=== PATIENT | female | born 1980 | race African-American/Black ===

== ENCOUNTER 2017-03-23 20:23 | Emergency (ER) | payer OTHER ==
[~2017-03-23] VITALS: Ht 165.1 cm; Wt 95.7 kg
[~2017-03-23 20:23] MED LIST: BACTRIM,SEPT1 TABLE1; CELEXA20 MG PO; IMURAN100 MG PO; IMURAN50 MG PO; LODINE400 MG PO; LOSARTAN POTASS50 MG PO; METHOTREXATE2.5 MG PO; METOPROLOL TART25 MG; METOPROLOL TART25 MG PO; Macrobid PO; PLAQUENIL200 MG PO; PREDNISONE20 MG PO; PREDNISONE5 MG PO; VESICARE10 MG PO; ZOFRAN ODT4 MG PO; ZOFRAN4 MG PO
[2017-03-23 20:58] LABS: EOSINOPHIL (%) 2.5 % (0-5); EOSINOPHIL COUNT 0.2 K/uL (0-0.3); HEMATOCRIT 34.6 % (36.0-46.0); IMMATURE GRANULOCYTE (%) 0.4 % (0.0-0.7); INSTRUMENT ABS NEUTROPHIL CT 4.8 K/uL; LYMPHOCYTE COUNT 2.5 K/uL (1.0-2.8); MCH 30.5 PG (29.0-34.0); MCHC 34.4 G/DL (30.0-36.0); MCV 88.7 FL (83-99); MONOCYTE COUNT 0.8 K/uL (0-0.8); NEUTROPHIL (%) 57.5 % (45-76); NEUTROPHIL COUNT 4.8 K/uL (1.8-6.4); PLATELET COUNT 272 K/uL (156-360); RBC DIS.WIDTH-CV 13.2 % (11.8-14.6); WHITE BLOOD COUNT 8.4 K/uL (4.1-10.2)
[2017-03-23 21:09] LABS: CHLORIDE 104 mEq/L (99-109); SODIUM 137 mEq/L (136-147)
[2017-03-23 21:11] LABS: GLUCOSE 79 mg/dL (70-99)
[2017-03-23 21:12] LABS: ANION GAP 6 MEQ/L (2-14)
[2017-03-23 21:13] LABS: TOTAL BILIRUBIN 0.7 mg/dL (0.0-1.0)
[2017-03-23 21:15] LABS: ALKALINE PHOSPHATASE 40 IU/L (3-129); GFR ESTIMATE (CALCULATED) > 59 mL/min/
[2017-03-23 21:16] LABS: UREA NITROGEN (BUN) 10 mg/dL (9-23)
[2017-03-23 21:18] LABS: CREATINE KINASE 235 IU/L (1-294)
[2017-03-23 21:26] LABS: QUANTITATIVE HCG < 4.0 MIU/ML
[2017-03-23] MEDS ORDERED: ATARAX,VISTARIL25 MG PO (21:42)
[2017-03-23] MEDS ORDERED: PREDNISONE20 MG PO (21:42)
[2017-03-23] MEDS ORDERED: VICODIN 5-3001 EACH PO (21:42)
[2017-03-23 21:54] VITALS: BP 137/79
== END 2017-03-23 21:55 | disposition home or self-care (01) ==
LOC: EME 20:23
PROVIDERS: Physician Assistant
DX: M79.1 Myalgia (principal); M33.90 Dermatopolymyositis, unspecified, organ involvement unspecified
CPT/HCPCS: 80053; 81003; 82550; 84702; 85025; 99281; 99284; J7512; Q0177

== ENCOUNTER 2017-06-08 07:46 | Emergency (ER) | payer OTHER ==
[~2017-06-08] VITALS: Ht 175.3 cm; Wt 98.7 kg
[~2017-06-08 07:46] MED LIST changes: +ATARAX,VISTARIL25 MG PO; +VICODIN 5-3001 EACH PO
[2017-06-08 08:15] LABS: EOSINOPHIL (%) 0.9 % (0-5); EOSINOPHIL COUNT 0.1 K/uL (0-0.3); HEMATOCRIT 32.8 % (36.0-46.0); IMMATURE GRANULOCYTE (%) 0.3 % (0.0-0.7); INSTRUMENT ABS NEUTROPHIL CT 4.3 K/uL; LYMPHOCYTE COUNT 1.6 K/uL (1.0-2.8); MCH 30.9 PG (29.0-34.0); MCHC 34.5 G/DL (30.0-36.0); MCV 89.6 FL (83-99); MEAN PLAT.VOLUME 10.4 uM^3 (9.5-12.4); MONOCYTE (%) 9.4 % (3-12); MONOCYTE COUNT 0.6 K/uL (0-0.8); NEUTROPHIL (%) 64.8 % (45-76); NEUTROPHIL COUNT 4.3 K/uL (1.8-6.4); PLATELET COUNT 226 K/uL (156-360); RBC DIS.WIDTH-CV 14.3 % (11.8-14.6); RBC DIS.WIDTH-SD 46.5 % (39-53); RED BLOOD COUNT 3.66 M/uL (3.80-5.20); WHITE BLOOD COUNT 6.7 K/uL (4.1-10.2)
[2017-06-08 08:23] LABS: CHLORIDE 107 mEq/L (99-109); POTASSIUM 3.6 mEq/L (3.7-5.4); SODIUM 139 mEq/L (136-147)
[2017-06-08 08:25] LABS: GLUCOSE 90 mg/dL (70-99)
[2017-06-08 08:26] LABS: ANION GAP 6 MEQ/L (2-14)
[2017-06-08 08:27] LABS: TOTAL BILIRUBIN 0.6 mg/dL (0.0-1.0)
[2017-06-08 08:29] LABS: ALKALINE PHOSPHATASE 37 IU/L (3-129); GFR ESTIMATE (CALCULATED) > 59 mL/min/
[2017-06-08 08:30] LABS: UREA NITROGEN (BUN) 6 mg/dL (9-23)
[2017-06-08 08:32] LABS: LIPASE 10 U/L (1.0-51.0)
[2017-06-08 08:35] LABS: ADD MIUA? YES; BILIRUBIN NEGATIVE; BLOOD SMALL; COLOR YELLOW ((YELLOW)); GLUCOSE (STRIP) NEGATIVE; KETONES NEGATIVE; LEUKOCYTES NEGATIVE; NITRITE NEGATIVE; PROTEIN (STRIP) 100; SPECIFIC GRAVITY 1.013 (1.000-1.030); UROBILINOGEN 0.2 MG/DL (0.2-1.0)
[2017-06-08 08:38] LABS: QUANTITATIVE HCG < 4.0 MIU/ML
[2017-06-08 08:44] LABS: BACTERIA RARE /HPF; EPITHELIAL CELLS 1+ /HPF; GRANULAR CASTS 0-5 /LPF; MUCUS TRACE /LPF; UCUL ADDED? NO; WHITE BLOOD CELLS 0-5 /HPF (0-5)
[2017-06-08] MEDS ORDERED: ZOFRAN ODT4 MG PO (09:00)
[2017-06-08 09:10] VITALS: BP 114/82
== END 2017-06-08 09:10 | disposition home or self-care (01) ==
LOC: EME 07:46
PROVIDERS: Physician Assistant
DX: K52.9 Noninfective gastroenteritis and colitis, unspecified (principal); J84.9 Interstitial pulmonary disease, unspecified; M33.13 Other dermatomyositis without myopathy
CPT/HCPCS: 80053; 81003; 83690; 84702; 85025; 99281; 99285; J7120; Q0177

== ENCOUNTER 2017-07-16 19:45 | Emergency (ER) | payer OTHER ==
[~2017-07-16] VITALS: Ht 165.1 cm; Wt 100.2 kg
[2017-07-16 20:14] LABS: ADD MIUA? YES; BILIRUBIN NEGATIVE; BLOOD LARGE; COLOR YELLOW ((YELLOW)); GLUCOSE (STRIP) NEGATIVE; KETONES NEGATIVE; LEUKOCYTES TRACE; NITRITE NEGATIVE; PROTEIN (STRIP) 100; SPECIFIC GRAVITY 1.008 (1.000-1.030); UROBILINOGEN 0.2 MG/DL (0.2-1.0)
[2017-07-16 20:22] LABS: HEMATOCRIT 33.6 % (36.0-46.0); MCH 31.1 PG (29.0-34.0); MCHC 35.1 G/DL (30.0-36.0); MCV 88.4 FL (83-99); MEAN PLAT.VOLUME 10.4 uM^3 (9.5-12.4); PLATELET COUNT 261 K/uL (156-360); RBC DIS.WIDTH-CV 13.3 % (11.8-14.6); RBC DIS.WIDTH-SD 43.5 % (39-53); WHITE BLOOD COUNT 9.7 K/uL (4.1-10.2)
[2017-07-16 20:32] LABS: CASTS NONE SEEN /LPF; EPITHELIAL CELLS 1+ /HPF; MUCUS TRACE /LPF
[2017-07-16 20:33] LABS: BACTERIA NONE SEEN /HPF; RED BLOOD CELLS TNTC /HPF (0-5); UCUL ADDED? YES; WHITE BLOOD CELLS 0-5 /HPF (0-5)
[2017-07-16 20:33] LABS: CHLORIDE 108 mEq/L (99-109); POTASSIUM 3.7 mEq/L (3.7-5.4); SODIUM 138 mEq/L (136-147)
[2017-07-16 20:35] LABS: GLUCOSE 92 mg/dL (70-99)
[2017-07-16 20:36] LABS: ANION GAP 6 MEQ/L (2-14)
[2017-07-16 20:37] LABS: TOTAL BILIRUBIN 0.6 mg/dL (0.0-1.0)
[2017-07-16 20:38] LABS: ALKALINE PHOSPHATASE 45 IU/L (3-129)
[2017-07-16 20:39] LABS: GFR ESTIMATE (CALCULATED) > 59 mL/min/
[2017-07-16 20:40] LABS: UREA NITROGEN (BUN) 6 mg/dL (9-23)
[2017-07-16 20:50] LABS: QUANTITATIVE HCG < 4.0 MIU/ML
[2017-07-16] MEDS ORDERED: ZITHROMAX Z-PA250 MG PO (23:52)
[2017-07-16] MEDS ORDERED: BENTYL10 MG PO (23:53)
[2017-07-17 00:01] VITALS: BP 145/77
== END 2017-07-17 00:04 | disposition home or self-care (01) ==
LOC: EME 19:45
DX: K31.84 Gastroparesis (principal); J18.9 Pneumonia, unspecified organism; I10 Essential (primary) hypertension; I47.1 Supraventricular tachycardia; M33.13 Other dermatomyositis without myopathy
CPT/HCPCS: 74176; 80053; 81003; 84702; 85027; 87086; 99281; 99284

== ENCOUNTER → 2017-08-01 | Outpatient (CLI) | payer OTHER ==
[~2017-08-01] VITALS: Ht 165.1 cm; Wt 97.3 kg
[~2017-08-01] MED LIST changes: +BENTYL10 MG PO; +COZAAR100 MG PO; -LOSARTAN POTASS50 MG PO; +ZITHROMAX Z-PA250 MG PO
== END | disposition home or self-care (01) ==
LOC: AMB 12:00
PROC: 0DJ08ZZ Inspection of Upper Intestinal Tract, Via Natural or Artificial Opening Endoscopic (ICD-10-PCS; principal; 2017-08-01)
DX: R13.10 Dysphagia, unspecified (principal); M33.90 Dermatopolymyositis, unspecified, organ involvement unspecified; J84.9 Interstitial pulmonary disease, unspecified; M70.62 Trochanteric bursitis, left hip